=== PATIENT | male | born 1980 | race African-American/Black ===

== ENCOUNTER 2017-07-13 14:15 | Emergency (ER) | payer MEDICARE ==
[~2017-07-13] VITALS: Ht 180.3 cm; Wt 120.0 kg
[2017-07-13 14:18] VITALS: BP 123/82
[2017-07-13] MEDS ORDERED: OLAN2.5T3 PO (14:19)
[2017-07-13 16:37] LABS: EOSINOPHILS % 2.3 % (0.0-5.0); HEMATOCRIT. 45.9 % (42.0-52.0); HEMOGLOBIN. 15.1 g/dL (14.0-18.0); LYMPHOCYTES % 34.6 % (20.0-50.0); MEAN CORPUSCULAR HEMOGLOBIN 25.6 pg (28.0-32.0); MEAN CORPUSCULAR VOLUME 77.7 fL (80.0-94.0); MEAN PLATELET VOLUME 7.7 fl (7.4-10.4); MONOCYTES % 13.8 % (2.0-8.0); NEUTROPHILS % 48.3 % (40.0-76.0); PLATELET 266 x1000/uL (130-400); RED BLOOD CELL COUNT 5.91 mill/uL (4.7-6.1); RED CELL DISTRIBUTION WIDTH 16.8 % (11.6-14.6)
[2017-07-13 16:42] LABS: CHLORIDE 109 mEq/L (98-107)
[2017-07-13 17:00] LABS: CLARITY URINE CLEAR (CLEAR); COLOR URINE YELLOW (YELLOW); KETONES URINE NEGATIVE (NEGATIVE); LEUKOCYTE ESTERASE URINE NEGATIVE (NEGATIVE); NITRITE URINE NEGATIVE (NEGATIVE); OCCULT BLOOD URINE NEGATIVE (NEGATIVE); PROTEIN URINE NEGATIVE (NEGATIVE); SPECIFIC GRAVITY URINE 1.014 (1.005-1.030)
== END 2017-07-13 21:01 | disposition home or self-care (01) ==
LOC: ER 14:15
DX: R10.30 Lower abdominal pain, unspecified (principal)
CPT/HCPCS: 36415; 74176; 80053; 81003; 83690; 85025; 99285